=== PATIENT | female | born 1955 | race Caucasian/White ===

== ENCOUNTER → 2018-06-05 | Outpatient (CLI) | payer OTHER ==
[~2018-06-05] MED LIST: GEMF600T8 PO; HYDR25TA6 PO; LEVO50TA5 PO; LISI40TA PO; OXYC-302 PO; RITU10VI IV; ZOLP10TA5 PO; [UNRECOGNIZED DRUG - CODE] IV
== END | disposition home or self-care (01) ==
LOC: CFH 09:51
PROVIDERS: ATTEND Family Medicine
DX: Z12.31 Encounter for screening mammogram for malignant neoplasm of breast (principal)
CPT/HCPCS: 77067

== ENCOUNTER 2019-03-29 16:30 | Emergency (ER) | payer OTHER ==
[~2019-03-29] VITALS: Ht 165.1 cm; Wt 68.2 kg
[2019-03-29 16:45] VITALS: BP 146/68
[2019-03-29] MEDS ORDERED: KETOROLAC 30 MG/1 ML ONE (17:46)
[2019-03-29] MEDS ORDERED: KETOROLAC 30 MG/1 ML IM ONE (18:00)
== END 2019-03-29 19:30 | disposition home or self-care (01) ==
LOC: ED 19:20
DX: S02.81XA Fracture of other specified skull and facial bones, right side, initial encounter for closed fracture (principal); I10 Essential (primary) hypertension; W01.0XXA Fall on same level from slipping, tripping and stumbling without subsequent striking against object, initial encounter; Y93.01 Activity, walking, marching and hiking; Y92.89 Other specified places as the place of occurrence of the external cause; Y99.8 Other external cause status
CPT/HCPCS: 29505; 71045; 72110; 73502; 73564; 96372; 99283; J1885

== ENCOUNTER → 2019-06-13 | Outpatient (CLI) | payer OTHER | END | disposition home or self-care (01) | LOC: CFH 09:48 | PROVIDERS: ATTEND Family Medicine | DX: Z12.31 Encounter for screening mammogram for malignant neoplasm of breast (principal); M85.89 Other specified disorders of bone density and structure, multiple sites; N64.89 Other specified disorders of breast | CPT/HCPCS: 77080; 77067 ==